=== PATIENT | male | born 1960 | race Caucasian/White ===

== ENCOUNTER 2016-12-25 04:03 | Emergency (ER) | payer OTHER, MEDICAID ==
[~2016-12-25] VITALS: Ht 174 cm; Wt 94.4 kg
[~2016-12-25 04:03] MED LIST: ALBU17AE20 IH; MOME17SP7 NS; MONT5TAB10 PO; MULT1CAP47 PO; NEBI5TAB2 PO; TRAM-277 PO; TRIAMTERINE PO; [UNRECOGNIZED DRUG - CODE] IH; [UNRECOGNIZED DRUG - CODE] PO
[2016-12-25 04:07] VITALS: Ht 174 cm; Wt 94.4 kg
--- OUTSIDE RECORDS SUMMARY | 2016-12-25 04:08 | XMS REPORT | Continuity of Care Document ---
Author Author [facility] [employer]. Organization [facility] Address Unknown Phone Unavailable Allergies Medications Problems Date Dx Coded Attending Type Code Diagnosis Diagnosed By 08/31/2013 TIERNEY WOODWARD MD 250.00 DM2/NOS UNCOMP NSU 08/31/2013 TIERNEY WOODWARD MD V70.0 ROUTINE MEDICAL EXAM 07/15/2014 TIERNEY WOODWARD MD 401.9 HYPERTENSION NOS 10/12/2014 LEONEL GIBSON MD 724.2 LUMBAGO 07/21/2015 TIERNEY WOODWARD MD E11.9 Type 2 diabetes mellitus without complications 03/19/2016 TIERNEY WOODWARD MD I10 Essential (primary) hypertension Procedures Code [place] [address] METABOLIC PANEL TOTAL CA TIERNEY WOODWARD MD 08/31/2013 37622 METABOLIC PANEL TOTAL CA TIERNEY WOODWARD MD 07/15/2014 14721 PT EVALUATION LEONEL GIBSON MD 09/20/2014 75941 ELECTRICAL STIMULATION LEONEL GIBSON MD 09/20/2014 20009 ULTRASOUND LEONEL BARTON MD 09/20/2014 00665 ELECTRICAL LEONEL JORDAN MD 09/23/2014 41080 ULTRASOUND THERAPY LEONEL GIBSON MD 09/23/2014 34487 MANUAL LEONEL BARTON MD 09/23/2014 52032 ELECTRICAL LEONEL JORDAN MD 09/25/2014 46068 ULTRASOUND LEONEL BARTON MD 09/25/2014 17485 MANUAL LEONEL BARTON MD 09/25/2014 46920 ELECTRICAL LEONEL JORDAN MD 09/30/2014 45712 ULTRASOUND LEONEL BARTON MD 09/30/2014 01201 MANUAL LEONEL BARTON MD 09/30/2014 79782 ELECTRICAL STIMULATION ARTHUR ANGEL, LEONEL Justice 10/04/2014 17512 ULTRASOUND THERAPY ARTHUR ANGEL, LEONEL Justice 10/04/2014 28011 MANUAL THERAPY ARTHUR ANGEL, LEONEL Justice 10/04/2014 80572 METABOLIC PANEL TOTAL CA TIERNEY WOODWARD MD 07/21/2015 55584 METABOLIC PANEL TOTAL CA TIERNEY WOODWARD MD 03/19/2016 Results Test Result Range Basic Metabolic Panel - 08/31/13 08:25 Sodium 139 MMOLL 134-145 Potassium 4.2 MMOLL 3.6-5.0 Chloride 103 MMOLL 98-107 CO2 26 MMOLL 22-30 Glucose 116 MG/DL 75-110 BUN 19 MG/DL 9-20 Creatinine .9 MG/DL 0.8-1.7 Calcium 9.6 MG/DL 8.4-10.2 Basic Metabolic Panel - 07/15/14 08:45 Sodium 142 MMOLL 134-145 Potassium 4.3 MMOLL 3.6-5.0 Chloride 102 MMOLL 98-107 CO2 27 MMOLL 22-30 Glucose 109 MG/DL 75-110 BUN 21 MG/DL 9-20 Creatinine .9 MG/DL 0.8-1.7 Calcium 9.4 MG/DL 8.4-10.2 Basic Metabolic Panel - 07/21/15 13:48 Sodium 137 MMOLL 134-145 Potassium 4.5 MMOLL 3.6-5.0 Chloride 98 MMOLL 98-107 CO2 32 MMOLL 22-30 Glucose 122 MG/DL 75-110 BUN 20 MG/DL 9-20 Creatinine 1.0 MG/DL 0.8-1.7 Calcium 9.4 MG/DL 8.4-10.2 Basic Metabolic Panel - 03/19/16 14:32 Sodium 145 MMOLL 134-145 Potassium 4.3 MMOLL 3.6-5.0 Chloride 99 MMOLL 98-107 CO2 30 MMOLL 22-30 Glucose 172 MG/DL 75-110 BUN 21 MG/DL 9-20 Creatinine .84 MG/DL 0.8-1.7 Calcium 9.3 MG/DL 8.4-10.2 EGFR 95 MLMIN Encounters ACCT No. Visit Date/Time Discharge Status Pt. Type Provider Facility Loc./Unit Complaint [id number] 03/19/2016 14:02:00 03/19/2016 14:02:00 DIS Outpatient MEHUL RUFF MD, [facility] [id number] 07/21/2015 13:13:00 07/21/2015 13:13:00 DIS Outpatient MEHUL RUFF MD, [facility] [id number] 10/13/2014 00:01:00 2014 23:59:59 CLS Outpatient LEONEL GIBSON MD [id number] 09/20/2014 10:22:00 2014 23:59:00 DIS Outpatient LEONEL GIBSON MD [id number] 07/15/2014 13:35:00 07/15/2014 13:35:00 DIS Outpatient MEHUL RUFF MD, [facility] [id number] 08/31/2013 11:50:00 08/31/2013 11:50:00 [facility]
--- OUTSIDE RECORDS SUMMARY | 2016-12-25 04:08 | XMS REPORT ---
Author Author [facility]. Organization [facility] Address [address] [place] [address] Phone [phone] Summary purpose CCDA Sent to [facility] Chief Complaint and Reason for Visit No authorized Reason for Visit (Admitting Diagnosis) is available for this visit. Problem list No authorized problems tracked for continuity of care are available for this visit. Encounters No authorized problems tracked for encounter diagnoses are available for this visit. Medications No home medications recorded for this patient visit Allergies, adverse reactions, alerts No allergy information is available for this patient. Immunizations No immunizations recorded for this patient visit Relevant diagnostic tests and/or laboratory data No authorized results are available for this patient visit History of procedures No procedures recorded for this patient visit. Functional status No functional or cognitive status observations are available for this visit. Vital signs No authorized vital signs are available for this visit. Social history No Social History or smoking status observations were recorded for this visit. ( Unknown if ever smoked.) Treatment Plan No treatment plan text is available for this visit. Hospital discharge instructions No discharge instruction text is available for this visit.
--- OUTSIDE RECORDS SUMMARY | 2016-12-25 04:08 | XMS REPORT ---
Author Author [facility]. Organization [facility] Address [address] [place] [address] Phone [phone] Summary purpose CCDA Sent to [facility] Chief Complaint and Reason for Visit No [...]
--- OUTSIDE RECORDS SUMMARY | 2016-12-25 04:08 | XMS REPORT ---
Author Author [facility]. Organization [facility] Address [address] [facility] [address] [place] [address] Phone [phone] Summary purpose CCDA Sent to [facility] Chief Complaint and Reason for Visit Admit Diagnosis 1 LUMBAGO Problem list No authorized problems tracked for [...] for this patient visit History of procedures Procedure Code Code Type Description Date Performed Performing Physician 69680 CPT-4 PT EVALUATION 09-20-2014 LEONEL GIBSON 48044 CPT-4 ELECTRICAL STIMULATION 09-20-2014 LEONEL GIBSON 79790 CPT-4 ULTRASOUND THERAPY 09-20-2014 LEONEL GIBSON 18210 CPT-4 ELECTRICAL STIMULATION 09-23-2014 LEONEL GIBSON 79251 CPT-4 ELECTRICAL STIMULATION 09-25-2014 LEONEL GIBSON 29978 CPT-4 ULTRASOUND THERAPY 09-23-2014 LEONEL GIBSON 41201 CPT-4 ULTRASOUND THERAPY 09-25-2014 LEONEL GIBSON 18510 CPT-4 MANUAL THERAPY 09-23-2014 LEONEL GIBSON 32631 CPT-4 MANUAL THERAPY 09-25-2014 LEONEL GIBSON 64362 CPT-4 ELECTRICAL STIMULATION 09-30-2014 LEONEL GIBSON 77682 CPT-4 ELECTRICAL STIMULATION 10-04-2014 LEONEL GIBSON 24683 CPT-4 ULTRASOUND THERAPY 09-30-2014 LEONEL GIBSON 77902 CPT-4 ULTRASOUND THERAPY 10-04-2014 LEONEL GIBSON 39392 CPT-4 MANUAL THERAPY 09-30-2014 LEONEL GIBSON 24675 CPT-4 MANUAL THERAPY 10-04-2014 LEONEL GIBSON Functional status No functional or cognitive status [...]
--- OUTSIDE RECORDS SUMMARY | 2016-12-25 04:08 | XMS REPORT ---
Author Author [facility]. Organization [facility] Address [address] [place] [address] Phone [phone] Summary purpose CCDA Sent to [facility] Chief Complaint and Reason for Visit No [...]
--- OUTSIDE RECORDS SUMMARY | 2016-12-25 04:08 | XMS REPORT ---
Author Author [facility]. Organization [facility] Address [address] [address] [address] [place] [address] Phone [phone] Summary purpose CCDA Sent to [facility] Chief Complaint and Reason for Visit No authorized Reason for Visit (Admitting Diagnosis) is available for this visit. Problem list No authorized problems tracked for continuity of care are available for this visit. Encounters No authorized problems tracked for encounter diagnoses are available for this visit. Medications No medications recorded for this patient visit Allergies, adverse reactions, alerts No allergy information is available for this patient. Immunizations No immunizations recorded for this patient visit Relevant diagnostic tests and/or laboratory data RESULTS Chemistry Group [id number] Result Normal Range Units Sodium 145 134-145 mmol/L Potassium 4.3 3.6-5.0 mmol/L Chloride 99 98-107 mmol/L CO2 30 22-30 mmol/L Glucose H 172 75-110 mg/dl BUN H 21 9-20 mg/dl Creatinine .84 0.8-1.7 mg/dl eGFR 95 ml/min. Calcium 9.3 8.4-10.2 mg/dl History of procedures No procedures recorded for [...]
--- OUTSIDE RECORDS SUMMARY | 2016-12-25 04:08 | XMS REPORT ---
Author Author [facility]. Organization [facility] Address [address] [place] [address] Phone [phone] Summary purpose CCDA Sent to [facility] Chief Complaint and Reason for Visit Admit Diagnosis 1 HYPERTENSION NOS Problem list No authorized problems tracked for [...] tests and/or laboratory data RESULTS Chemistry Group [id number] Result Normal Range Units Sodium 142 134-145 mmol/L Potassium 4.3 3.6-5.0 mmol/L Chloride 102 98-107 mmol/L CO2 27 22-30 mmol/L Glucose 109 75-110 mg/dl BUN H 21 9-20 mg/dl Creatinine .9 0.8-1.7 mg/dl Calcium 9.4 8.4-10.2 mg/dl History of procedures Procedure Code Code Type Description Date Performed Performing Physician 61334 CPT-4 METABOLIC PANEL TOTAL CA 07-15-2014 TIERNEY RUFF Functional status No functional or cognitive status [...]
--- OUTSIDE RECORDS SUMMARY | 2016-12-25 04:08 | XMS REPORT ---
Author Author [facility]. Organization [facility] Address [address] [facility] [place] [address] Phone [phone] Summary purpose CCDA Sent to [facility] Chief Complaint and Reason for Visit [...] tests and/or laboratory data RESULTS Chemistry Group [id number] Sodium 137 Potassium 4.5 Chloride 98 CO2 H 32 Glucose H 122 BUN 20 Creatinine 1.0 Calcium 9.4 History of procedures Procedure Code Code Type Description Date Performed Performing Physician 41366 CPT-4 METABOLIC PANEL TOTAL CA 07-21-2015 TIERNEY RUFF Functional status No functional or [...]
--- OUTSIDE RECORDS SUMMARY | 2016-12-25 04:08 | XMS REPORT ---
Author Author [facility]. Organization [facility] Address [address] [address] [place] [address] Phone [phone] Summary purpose CCDA Sent to [facility] Chief Complaint and Reason for Visit No [...] tests and/or laboratory data RESULTS Chemistry Group [id number] Result Normal Range Units Sodium 142 134-145 mmol/L Potassium 4.3 3.6-5.0 mmol/L Chloride 102 98-107 mmol/L CO2 27 22-30 mmol/L Glucose 109 75-110 mg/dl BUN H 21 9-20 mg/dl Creatinine .9 0.8-1.7 mg/dl Calcium 9.4 8.4-10.2 mg/dl History of procedures No procedures [...]
--- NOTE | 2016-12-25 04:10 | NUR ---
TRIAGE NOTE PT IS VERY SOCIAL AND TALKATIVE IN TRIAGE GIVING LONG HX OF STOMACH PROBLEMS WITH CERTAIN FOODS
[2016-12-25] MEDS ORDERED: NORMAL SALINE 1,000 ML IV ONE (04:30)
[2016-12-25] MEDS ORDERED: KETOROLAC 30mg/ml INJECTION IV ONE (04:30)
[2016-12-25] MEDS ORDERED: PROCHLORPERAZINE 10mg/2ml INJECTION IV ONE (04:30)
--- NOTE | 2016-12-25 04:34 | ERPDOC ---
Departure Disposition Decision Date: Dec 25, 2016 Disposition Decision Time: 09:41 (JUAN DONNELLY MD) Disposition: 01 DISCHARGED HOME, SELF-CARE Impression Impression (ROYA ERNANDEZ MD) Impression: Primary Impression: Right upper quadrant abdominal pain Additional Impression: Fatty food intolerance Severity: Moderate (JUAN DONNELLY MD) Condition: Improved Seen By: Physician only (JUAN DONNELLY MD) Referrals: TIERNEY CONKLIN (Family) Patient Instructions: Abdominal Pain (ED) Problems/Meds/Labs Reviewed?: Yes Medications reviewed and manag: Yes (JUAN DONNELLY MD) Additional Instructions: Flagyl 500 mg, one tablet 3 times daily Levaquin 750 mg, 1 tab daily. Zofran 4 mg every 6 hours as needed for nausea. Low-fat diet--That means no fried fish and hush puppies :) Follow-up with your primary care provider, set up HIDA scan. Follow up care ordered?: Yes Mental Status: Alert, Oriented (JUAN DONNELLY MD) Scripts Ondansetron HCl (Ondansetron HCl) 4 Mg Tablet 1 TAB PO Q6HPRN Y for NAUSEA, #30 TAB 1 Refill Prov: JUAN DONNELLY MD 12/25/16 Metronidazole (Flagyl) 500 Mg Tablet 11 TAB PO TID, #30 TAB Prov: JUAN DONNELLY MD 12/25/16 Levofloxacin (Levaquin) 750 Mg Tablet 1 TAB PO DAILY, #10 TAB Prov: JUAN DONNELLY MD 12/25/16 HPI - Abdominal Pain General Chief Complaint: Abdominal Pain Stated Complaint: ABD PAIN Time Seen by Provider: 04:06 Source: patient, family History/Exam Limitations: no limitations (ROYA ERNANDEZ MD) Time Seen by Provider: 06:19 (JUAN DONNELLY MD) HPI - Abdominal Pain Initial Comments Patient has had multiple episodes of the past several months of epigastric and right upper quadrant abdominal pain with bloating after eating fatty fried foods or baked ham. Approximately 36 hours ago the patient had urge meal of fried catfish with hush puppies. 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 Patient went to the emergency room at [facility], had "normal blood work," and was given a GI cocktail to relief of his symptoms at that time. At 12:30 this morning the patient again had the recurrence of severe right sided crampy abdominal pain with generalized bloating and full feeling throughout the abdomen. Patient also had dizziness, and one episode of vomiting bile. Patient has not had evaluation of his gallbladder in the past, but has had his appendix removed. Occurred At: home Onset: Rapid Duration: 4-6 hrs Quality: cramping, sharpness Location: RUQ, right flank Radiation: no radiation Associated Symptoms: fever/chills (temperature up to 1.2 yesterday at home), nausea/vomiting, DENIES: back pain, chest pain, diaphoresis, fatigue, headache, heartburn, rash, shortness of breath, swelling/mass in abdomen, syncope, weakness Hx of Similar Symptoms: Yes (ROYA ERNANDEZ MD) Allergies: Coded Allergies: Penicillins (Verified Allergy, Intermediate, HIVES, 12/25/16) codeine (Verified Allergy, Mild, NAUSEA, 12/25/16) Past History Past Medical History Metabolic: diabetes, hypertension Respiratory: asthma Musculoskeletal: back pain (ROYA ERNANDEZ MD) Surgical History General: appendix (ROYA ERNANDEZ MD) Vaccines Hx Influenza Vaccination: Yes (fall) Hx Pneumococcal Vaccination: Yes (2005) (ROYA ERNANDEZ MD) Social History Smoking Status: Never smoker Does patient use chewing tobac: No Second Hand Exposure: No Substance Use Type: does not use Alcohol Intake: none (ROYA ERNANDEZ MD) Record Review Pertinent history updated: Yes (ROYA ERNANDEZ MD) Review of Systems Constitutional Constitutional: DENIES: appetite decrease, appetite increase, chills, dizziness , fever, weakness (ROYA ERNANDEZ MD) ENMT Ears: DENIES: pain Hearing: DENIES: hearing loss, tinnitus Balance: DENIES: vertigo Mouth/Throat: DENIES: change in swallowing, change in voice, hoarsness, painful swallowing, sore throat (ROYA ERNANDEZ MD) Cardiovascular Cardiac: DENIES: chest pain, dyspnea on exertion Rhythm/Rate: DENIES: irregular beat, palpitations, tachycardia Vascular: DENIES: pedal edema (ROYA ERNANDEZ MD) Pulmonary Respiratory: DENIES: cough, dyspnea, pleuritic chest pain (ROYA ERNANDEZ MD) GI Upper Abdomen: nausea, pain, vomiting, DENIES: dysphagia, food intolerances, heartburn/indigestion, hematemesis Lower Abdomen: pain, DENIES: blood in stool, rimma-colored stools, constipation , diarrhea, melena, painful BM (ROYA ERNANDEZ MD) General: DENIES: burning, dysuria, frequency, pain, urgency (ROYA ERNANDEZ MD) Musculoskeletal General: DENIES: cramps, joint pain, joint swelling, pain, weakness (ROYA ERNANDEZ MD) Integumentary Skin: DENIES: rash, sores (ROYA ERNANDEZ MD) Neurological General: DENIES: headache, numbness, tingling, vertigo, weakness (ROYA ERNANDEZ MD) Psychiatric Psychiatric: DENIES: anxiety, depression, nervousness (ROYA ERNANDEZ MD) Physical Exam General General Nourishment: well nourished, well developed, appears stated age, no acute distress General Body Habitus: well groomed (ROYA ERNANDEZ MD) Vitals and Pain First Documented Vital Signs Date Time Temp Pulse Resp B/P Pulse Ox O2 Delivery O2 Flow Rate FiO2 12/25/16 04:07 98.0 68 20 141/69 93 Room Air (JUAN DONNELLY MD) Vitals and Pain Weight: Kilograms: Height (feet): Height (inches): Triage Pain Scale: (ROYA ERNANDEZ MD) RN VS reviewed by Provider: Yes (ROYA ERNANDEZ MD) Normal Exams: Head: Normocephalic w/o trauma Eyes: Pupils are PERRLA w/ EOMI, No scleral icterus, irritation, or foreign bodies noted ENMT: No facial trauma, nasal exudates, pharyngeal erythema, or exudates are noted Neck: Full range of motion, without adenopathy, JVD, bruits or thyromegaly Chest/Resp: Clear all brown, with good airflow, and symmetry bilaterally CV: Regular rate and rhythm, without murmur or gallop, Pulses 2+ all extremities, capillary refill, <2 seconds all ext., no pedal edema noted Lymphatic: No lymphadenopathy, or lymphedema noted Musculoskeletal: No tenderness, or deformity noted, good range of motion, all extremities Integumentary: No rashes, hives, or bruising noted, hair and nails, without abnormality Neurologic: Patient is alert, and oriented, cranial nerves, motor/sensory/ cerebellar, exams w/o gross deficits, to observation Psychiatric: Patient exhibits, appropriate attention, emotion and affect (ROYA ERNANDEZ MD) Abdomen (brief) Abdominal Brief: FOUND: soft, tender (epigastric and right upper quadrant tenderness, mild guarding, no rebound), NOT FOUND: bowel normo active x4 ( mildly diminished throughout), distended, hepatosplenomegaly, pulsatile mass ( ROYA ERNANDEZ MD) Progress Results/Orders Orders Procedure Category Date Status Time Iv Lock (Ed Only) EDM 12/25/16 Transmitted 04:30 Cbc W/Auto LAB 12/25/16 Complete Diff-Reflex Manual Cmp - Comprehensive LAB 12/25/16 Complete Metabolic Lipase LAB 12/25/16 Complete Normal Saline (Normal PHA 12/25/16 Complete Saline Iv) 04:30 Ketorolac (Toradol) PHA 12/25/16 Complete 04:30 Prochlorperazine PHA 12/25/16 Complete (Compazine) 04:30 Us Gallbladder US 12/25/16 Logged (JUAN DONNELLY MD) Lab Results Laboratory Tests Test 12/25/16 05:04 White Blood Count 17.0T/MM3 Red Blood Count 4.94M/MM3 Hemoglobin 15.0GM/DL Hematocrit 43.6% Mean Corpuscular Volume 88.3UM3 Mean Corpuscular Hemoglobin 30.4UUG Mean Corpuscular Hemoglobin Concent 34.4GM/DL RDW Standard Deviation 39.7FL Platelet Count 166T/MM3 Mean Platelet Volume 11.1UM3 Immature Granulocyte % (Auto) % Neutrophils (%) (Auto) % Lymphocytes (%) (Auto) % Monocytes (%) (Auto) % Eosinophils (%) (Auto) % Basophils (%) (Auto) % Absolute Immature Granulocyte (auto T/MM3 Absolute Neutrophils (auto) T/MM3 Absolute Lymphocytes (auto) T/MM3 Absolute Monocytes (auto) T/MM3 Absolute Eosinophils (auto) T/MM3 Absolute Basophils (auto) T/MM3 Neutrophils % (Manual) 92.0% Band Neutrophils % 1.0% Lymphocytes % (Manual) 7.0% Absolute Neutrophils (Manual) 15.6T/MM3 Band Neutrophils # 0.2T/MM3 Lymphocytes # (Manual) 1.2T/MM3 Red Cell Morphology Comment Normal Turbidity < 20 Sodium Level 139MEQ/L Potassium Level 4.0MEQ/L Chloride Level 99MEQ/L Carbon Dioxide Level 25MEQ/L Anion Gap 15MEQ/L Blood Urea Nitrogen 21.0MG/DL Creatinine 0.9MG/DL Glomerular Filtration Rate Calc 87 BUN/Creatinine Ratio 23RATIO Glucose Level 188MG/DL Calculated Osmolality 276MOSM/KG Calcium Level 9.1MG/DL Total Bilirubin 1.20MG/DL Icterus Index < 2 Aspartate Amino Transf (AST/SGOT) 24U/L Alanine Aminotransferase (ALT/SGPT) 34U/L Alkaline Phosphatase 59U/L Total Protein 7.0G/DL Albumin 4.2G/DL Globulin 2.8G/DL Albumin/Globulin Ratio 1.5RATIO Lipase 33U/L Chemistry Specimen Hemolysis < 15 (JUAN DONNELLY MD) Medications Current ED Medications Sodium Chloride (Normal Saline IV) 1,000 ml @ 0 mls/hr Q0M ONCE IV Last administered on 12/25/16 05:00; Start 12/25/16 at 04:30; Stop 12/25/16 at 04:32 ; Status DC Ketorolac Tromethamine (Toradol) 30 mg O ONCE IV Last administered on 05:06; Start 12/25/16 at 04:30; Stop 12/25/16 at 04:32; Status DC Prochlorperazine Edisylate (Compazine) 10 mg O ONCE IV Last administered on 05:01; Start 12/25/16 at 04:30; Stop 12/25/16 at 04:32; Status DC (JUAN DONNELLY MD) Progress Progress Patient given Toradol 30 mg IV, Compazine 10 mg IV, 1 L normal saline IV fluid bolus - patient has some relief, but persistent right upper quadrant abdominal pain with positive Hooks sign CBC - moderate elevated white blood cell count, minimal left shift CMP/L - n Gallbladder ultrasound is ordered at 0540 (ROYA ERNANDEZ MD) Progress Labs are normal except for elevated white count. Left shift is noted. Ultrasound of abdomen shows no gallstones, but does document tenderness during the exam. Discussed options with the patient. Certainly he needs an evaluation for probable laparoscopic cholecystectomy by a surgeon. Because of the elevated white count would treat him with Flagyl and Levaquin for 7-10 days, while he sets up follow up with primary care provider and referral to general surgery. Discussed the possible need for HIDA scan. He'll review this with his primary care provider. Also discussed diet management. Discussed that fried fish and hush puppies does not count as low fat. I do think patient is committed to changing diet, which certainly will help. Juan Donnelly M.D. (JUAN DONNELLY MD) ROYA ERNANDEZ MD Dec 25, 2016 04:34 JUAN DONNELLY MD Dec 25, 2016 09:42
--- NOTE | 2016-12-25 04:55 | NUR ---
IVL IVL STARTED IN THE LEFT AC WITH #20GA, FIRST ATTEMPT BLOOD OBTAINED FOR LAB PT STAN WELL PT HAS BRUISING TO THE RIGHT HAND AND THE RIGHT AC FROM LAB DRAWS IN [place] [facility] ON TUESDAY. PT REPORTS HE BRUISES EASILY
--- NOTE | 2016-12-25 05:00 | NUR ---
IV FLUID #1 IV 1000CC NS STARTED AT 999CC/HR IV SITE WITHOUT REDNESS OR SWELLING PT TALKATIVE WITH STAFF AT BEDSIDE
--- NOTE | 2016-12-25 05:01 | NUR ---
COMPAZINE IV COMPAZINE GIVEN FOR NAUSEA AND CRAMPING
--- NOTE | 2016-12-25 05:06 | NUR ---
TORADOL IV TORADOL GIVEN FOR PAIN PT RATES HIS PAIN 8/
[2016-12-25 05:10] LABS: HCT - HEMATOCRIT 43.6 % (41-53); MEAN CORPUSCULAR HGB 30.4 UUG (26-34); MEAN CORPUSCULAR HGB CONC(MCHC 34.4 GM/DL (31-37); MEAN CORPUSCULAR VOLUME 88.3 UM3 (80-100); MEAN PLATELET VOLUME 11.1 UM3 (9.4-12.4); RED BLOOD COUNT 4.94 M/MM3 (4.50-5.90)
--- NOTE | 2016-12-25 05:15 | NUR ---
REST PT DOZING QUIETLY ON CART DECLINED OFFERED BLANKET LIGHTS DIMMED
[2016-12-25 05:19] LABS: ALBUMIN 4.2 G/DL (3.5-5.0); ALBUMIN/GLOBULIN RATIO 1.5 RATIO (1.1-2.2); ALKALINE PHOSPHATASE 59 U/L (38-126); ALT (SGPT) 34 U/L (21-72); ANION GAP 15 MEQ/L (5-15); AST (SGOT) 24 U/L (17-59); BUN/CREATININE RATIO 23 RATIO (6-26); CALCIUM 9.1 MG/DL (8.4-10.2); CHLORIDE 99 MEQ/L (98-107); CO2 - CARBON DIOXIDE 25 MEQ/L (22-30); CREATININE 0.9 MG/DL (0.8-1.5); GLOMERULAR FILTRATION RATE 87; GLUCOSE 188 MG/DL (75-110); LIPASE 33 U/L (23-300); SODIUM 139 MEQ/L (134-144)
[2016-12-25 05:26] LABS: BAND NEUTROPHILS # 0.2 T/MM3; LYMPHOCYTES # (MANUAL) 1.2 T/MM3 (1-4.8); NEUTROPHILS #(MANUAL)-ABSOLUTE 15.6 T/MM3 (1.8-7.7); TOTAL CELLS COUNTED 100 %
[2016-12-25] MEDS ORDERED: NORCO (05:26)
[2016-12-25] MEDS ORDERED: METF500T4 PO (05:26)
--- NOTE | 2016-12-25 05:41 | NUR ---
STATUS PT AROUSES EASILY TO STIMULI STATES HE WAS SLEEPING CONTINUES TO FEEL THE PAIN TO THE RUQ DR ERNANDEZ AT BEDSIDE
--- NOTE | 2016-12-25 05:48 | NUR ---
SONO CALL TO THE ON-CALL SONO TECH FOR ORDERED GALLBLADDER SONO
--- NOTE | 2016-12-25 06:06 | NUR ---
IV FLUID #1 IV NS INFUSED IV SITE WITHOUT REDNESS OR SWELLING PT REPORTS HE SLEPT SOME REPORTS THE PAIN IS STILL THERE LIKE A DEEP ACHE TELLS STAFF HE CAN TAKE A DEEP BREATH NOW WITHOUT SEVERE PAIN RATES PAIN 03/21 DENIES NAUSEA, NO VOMITING REMAINS AT BEDSIDE
--- OUTSIDE RECORDS SUMMARY | 2016-12-25 07:09 | XMS REPORT | Continuity of Care Document ---
Author Author [facility] [employer]. Organization [facility] Address Unknown Phone Unavailable Allergies Medications Problems [...] Procedures Code [place] [id number] METABOLIC PANEL TOTAL CA TIERNEY WOODWARD MD 08/31/2013 [id number] METABOLIC PANEL TOTAL CA TIERNEY WOODWARD MD 07/15/2014 85099 PT EVALUATION LEONEL GIBSON MD 09/20/2014 20537 ELECTRICAL STIMULATION LEONEL GIBSON MD 09/20/2014 43883 ULTRASOUND LEONEL BARTON MD 09/20/2014 03086 ELECTRICAL LEONEL JORDAN MD 09/23/2014 22199 ULTRASOUND THERAPY LEONEL GIBSON MD 09/23/2014 57336 MANUAL LEONEL BARTON MD 09/23/2014 66385 ELECTRICAL LEONEL JORDAN MD 09/25/2014 41359 ULTRASOUND LEONEL BARTON MD 09/25/2014 29121 MANUAL LEONEL BARTON MD 09/25/2014 82449 ELECTRICAL LEONEL JORDAN MD 09/30/2014 38745 ULTRASOUND LEONEL BARTON MD 09/30/2014 81481 MANUAL LEONEL BARTON MD 09/30/2014 25432 ELECTRICAL STIMULATION ARTHUR ANGEL, LEONEL Justice 10/04/2014 75947 ULTRASOUND THERAPY ARTHUR ANGEL, LEONEL Justice 10/04/2014 68422 MANUAL THERAPY ARTHUR ANGEL, LEONEL Justice 10/04/2014 15265 METABOLIC PANEL TOTAL CA TIERNEY WOODWARD MD 07/21/2015 10674 METABOLIC PANEL TOTAL CA TIERNEY WOODWARD MD [...] Status Pt. Type Provider Facility Loc./Unit Complaint [id number] 03/19/2016 14:02:00 03/19/2016 14:02:00 DIS Outpatient MEHUL RUFF MD, [facility] [id number] 07/21/2015 13:13:00 07/21/2015 13:13:00 DIS Outpatient MEHUL RUFF MD, [facility] [id number] 10/13/2014 00:01:00 2014 23:59:59 CLS Outpatient LEONEL GIBSON MD [id number] 09/20/2014 10:22:00 2014 23:59:00 DIS Outpatient LEONEL GIBSON MD [id number] 07/15/2014 13:35:00 07/15/2014 13:35:00 DIS Outpatient MEHUL RUFF MD, [facility] [id number] 08/31/2013 11:50:00 08/31/2013 11:50:00 [facility]
--- NOTE | 2016-12-25 07:21 | NUR ---
US US completed at this time, awaiting results for pt plan of care determination.
--- NOTE | 2016-12-25 09:24 | NUR ---
UPDATE DR. DONNELLY IN TO SEE THE PT.
[2016-12-25] MEDS ORDERED: METO50TA5 PO (09:40)
[2016-12-25] MEDS ORDERED: ALBU18HF2 INH (09:40)
[2016-12-25] MEDS ORDERED: RAMI10CA24 PO (09:42)
[2016-12-25] MEDS ORDERED: AMLO5TAB2 PO (09:42)
[2016-12-25] MEDS ORDERED: FLUT16SP EA NOSTRIL (09:42)
[2016-12-25] MEDS ORDERED: HYDR-3989 PO (09:44)
[2016-12-25] MEDS ORDERED: CYCL5TAB PO (09:44)
[2016-12-25] MEDS ORDERED: FLUO40CA49 PO (09:44)
[2016-12-25] MEDS ORDERED: BECL8.7A6 INH (09:44)
[2016-12-25] MEDS ORDERED: OMEP20CA10 PO (09:44)
[2016-12-25] MEDS ORDERED: IBUP-1724 PO (09:45)
[2016-12-25] MEDS ORDERED: CHOL200014 PO (09:45)
[2016-12-25] MEDS ORDERED: METR500T PO (09:49)
[2016-12-25] MEDS ORDERED: LEVO750T20 PO (09:49)
[2016-12-25] MEDS ORDERED: ONDA-55 PO (09:49)
[2016-12-25 10:00] VITALS: BP 133/67; PULSE 78; RESP 17; TEMP 98; O2SAT 98
--- NOTE | 2016-12-26 17:15 | DI ---
Indication: ITS.REASON: right upper quadrant abdominal pain, positive Hooks sign PROCEDURE: US GALLBLADDER: Encounter: Initial Comparison: None Technique: Grayscale and color Doppler sonographic imaging of the right upper quadrant of the abdomen was performed. Findings: Hepatic parenchyma is echogenic without evidence for focal mass. The gallbladder appears sonographically normal although the sonographic Hooks's sign was reportedly positive. No stone disease. Wall thickness is at the upper limits of normal at 3 mm. Both the intra and extrahepatic biliary system are of normal caliber with the common duct measuring 4 mm in dimension. Pancreas is not well seen due to shadowing bowel gas. The right kidney is present without collecting system dilatation. The right kidney measures 10.3 cm in length. Simple 3 cm right renal cyst and additional 1.8 cm right renal cyst. Impression: 1. Positive sonographic Hooks sign of uncertain clinical significance. Nuclear medicine hepatobiliary scan may be helpful for further evaluation. 2. Probable hepatic steatosis. There is a preliminary report by [facility]. .
== END 2016-12-25 10:00 | disposition home or self-care (01) ==
LOC: ED 04:03
DX: R10.11 Right upper quadrant pain (principal); R14.0 Abdominal distension (gaseous); R42 Dizziness and giddiness; R11.10 Vomiting, unspecified; K90.49 Malabsorption due to intolerance, not elsewhere classified
CPT/HCPCS: 76705; 80053; 83690; 85025; 96361; 96374; 96375; 99284; J0780; J1885; J7030

== ENCOUNTER 2017-01-17 10:23 | Day surgery (SDC) | payer OTHER, MEDICAID ==
[~2017-01-17] VITALS: Ht 172.7 cm; Wt 90.5 kg
[2017-01-17] VITALS (31 sets, daily range): BP systolic 118–155; BP diastolic 62–98; PULSE 66–100; RESP 12–19; TEMP 96–98.1; O2SAT 90–99; Ht 172.7 cm; Wt 90.5 kg
[~2017-01-17 10:23] MED LIST changes: -ALBU17AE20 IH; +ALBU18HF2 INH; +AMLO5TAB2 PO; +BECL8.7A6 INH; +CHOL200014 PO; +CYCL5TAB PO; +FEXO180T94 PO; +FLUO40CA49 PO; +FLUT16SP EA NOSTRIL; +HYDR-3989 PO; +IBUP-1724 PO; +LEVOFLOXACIN 500 mg IVPB 500 MG in D5W 100 ML IV ONE; +LIDOCAINE 1% (10mg/ml) 2ml SDV INJ ONE; +LR 1,000 ML IV SCH; +METF500T4 PO; +METO50TA5 PO; -MOME17SP7 NS; -MONT5TAB10 PO; -NEBI5TAB2 PO; +OMEP20CA10 PO; +ONDA-55 PO; +RAMI10CA24 PO; -TRAM-277 PO; -TRIAMTERINE PO; -[UNRECOGNIZED DRUG - CODE] IH; -[UNRECOGNIZED DRUG - CODE] PO
--- OUTSIDE RECORDS SUMMARY | 2017-01-17 10:29 | XMS REPORT | Continuity of Care Document ---
Author Author [facility] [employer]. Organization [facility] Address Unknown Phone Unavailable Allergies Medications Problems [...] Procedures Code Description [place] [id number] METABOLIC PANEL TOTAL CA TIERNEY WOODWARD MD 08/31/2013 66864 METABOLIC PANEL TOTAL CA TIERNEY WOODWARD MD 07/15/2014 75958 PT EVALUATION LEONEL GIBSON MD 09/20/2014 11498 ELECTRICAL STIMULATION LEONEL GIBSON MD 09/20/2014 00207 ULTRASOUND LEONEL BARTON MD 09/20/2014 46574 ELECTRICAL LEONEL JORDAN MD 09/23/2014 06310 ULTRASOUND THERAPY LEONEL GIBSON MD 09/23/2014 14338 MANUAL LEONEL BARTON MD 09/23/2014 61860 ELECTRICAL LEONEL JORDAN MD 09/25/2014 47745 ULTRASOUND LEONEL BARTON MD 09/25/2014 49993 MANUAL LEONEL BARTON MD 09/25/2014 67727 ELECTRICAL LEONEL JORDAN MD 09/30/2014 92839 ULTRASOUND LEONEL BARTON MD 09/30/2014 31994 MANUAL LEONEL BARTON MD 09/30/2014 50270 ELECTRICAL STIMULATION ARTHUR ANGEL, LEONEL Justice 10/04/2014 97032 ULTRASOUND THERAPY ARTHUR ANGEL, LEONEL Justice 10/04/2014 58239 MANUAL THERAPY ARTHUR ANGEL, LEONEL Justice 10/04/2014 49500 METABOLIC PANEL TOTAL CA MEHUL RUFF MD, TIERNEY Koch 07/21/2015 [id number] METABOLIC PANEL TOTAL CA TIERNEY WOODWARD MD [...] Calcium 9.3 MG/DL 8.4-10.2 EGFR 95 MLMIN Comprehensive Metabolic Panel - 12/24/16 11:00 Sodium 139 MMOLL 134-145 Potassium 4.0 MMOLL 3.6-5.0 Chloride 100 MMOLL 98-107 CO2 22 MMOLL 22-30 Glucose 194 MG/DL 75-110 BUN 19 MG/DL 9-20 Creatinine .73 MG/DL 0.8-1.7 Calcium 9.1 MG/DL 8.4-10.2 T Bili .6 MG/DL 0.2-1.3 T. Protein 7.1 G/DL 6.3-8.2 A/G Ratio 1.4 RATIO Albumin 4.2 G/DL 3.5-5.0 Alk Phos 76 U/L 38-126 ALT 29 U/L 11-66 AST 34 U/L 14-36 EGFR 111 MLMIN CBC - 12/24/16 11:00 Eos # 0.02 x10^3 0-0.5 Eos % 0.2 % 0-4 HCT 43.9 % 42.0-52.0 HGB 14.9 G/DL 14.0-18.0 Lymph # 0.96 x10^3 1.0-4.0 Lymph % 9.1 % 20-50 MCH 30.3 PG 27.0-31.0 MCHC 33.9 G/DL 32.0-36.0 MCV 89.2 FL 80-94 Hur[place] # 0.66 x10^3 0.0-0.8 [place] % 6.2 % 1.0-9.0 MPV 11.0 FL 6.0-10.0 Platelet 173 x10^3 150-400 RBC 4.92 x10^3 4.60-6.20 RDW 12.4 % 12-15 WBC 10.60 x10^3 5.8-10.8 Baso # 0.02 x10^3 0-0.2 Baso % 0.2 % 0-2 Neut % 84.3 % 50-70 Neut # 8.94 x10^3 3.0-7.0 Lipase - 12/24/16 11:00 Lipase 73 MG/DL 23-300 Troponin I - 12/24/16 11:12 Troponin I < 0.06 NG/ML Comprehensive Metabolic Panel - 12/31/16 12:02 Sodium 138 MMOLL 134-145 Potassium 3.8 MMOLL 3.6-5.0 Chloride 98 MMOLL 98-107 CO2 26 MMOLL 22-30 Glucose 222 MG/DL 75-110 BUN 19 MG/DL 9-20 Creatinine .77 MG/DL 0.8-1.7 Calcium 9.3 MG/DL 8.4-10.2 T Bili .5 MG/DL 0.2-1.3 T. Protein 5.8 G/DL 6.3-8.2 A/G Ratio 1.1 RATIO Albumin 3.1 G/DL 3.5-5.0 Alk Phos 71 U/L 38-126 ALT 21 U/L 11-66 AST 18 U/L 14-36 EGFR 104 MLMIN CBC - 12/31/16 12:32 Eos # 0.03 x10^3 0-0.5 Eos % 0.4 % 0-4 HCT 41.2 % 42.0-52.0 HGB 13.8 G/DL 14.0-18.0 Lymph # 0.96 x10^3 1.0-4.0 Lymph % 11.7 % 20-50 MCH 30.3 PG 27.0-31.0 MCHC 33.5 G/DL 32.0-36.0 MCV 90.5 FL 80-94 [place] # 1.06 x10^3 0.0-0.8 [place] % 12.9 % 1.0-9.0 MPV 11.0 FL 6.0-10.0 Platelet 201 x10^3 150-400 RBC 4.55 x10^3 4.60-6.20 RDW 12.1 % 12-15 WBC 8.19 x10^3 5.8-10.8 Baso # 0.01 x10^3 0-0.2 Baso % 0.1 % 0-2 Neut % 74.9 % 50-70 Neut # 6.13 x10^3 3.0-7.0 Encounters ACCT No. Visit Date/Time Discharge Status Pt. Type Provider Facility Loc./Unit Complaint [id number] 03/19/2016 14:02:00 03/19/2016 14:02:00 DIS Outpatient MEHUL RUFF MD, [facility] ALAB [id number] 07/21/2015 13:13:00 07/21/2015 13:13:00 DIS Outpatient MEHUL RUFF MD, [facility] SONJA [id number] 10/13/2014 00:01:00 2014 23:59:59 CLS Outpatient LEONEL GIBSON MD [id number] 09/20/2014 10:22:00 2014 23:59:00 DIS Outpatient LEONEL GIBSON MD [id number] 07/15/2014 13:35:00 07/15/2014 13:35:00 DIS Outpatient MEHUL RUFF MD, [facility] [id number] 08/31/2013 11:50:00 08/31/2013 11:50:00 DIS Outpatient MEHUL RUFF MD, [facility] [id number] 12/31/2016 12:02:00 Document Registration [id number] 12/24/2016 11:00:00 Document Registration
--- OUTSIDE RECORDS SUMMARY | 2017-01-17 10:29 | XMS REPORT ---
Author Author [facility]. Organization [facility] Address [address] [place] [address] Phone [phone] Summary purpose CCDA Sent to [facility] Chief Complaint and Reason for Visit No authorized Reason for Visit (Admitting Diagnosis) is available for this visit. Problem list No authorized problems tracked for continuity of care are available for this visit. Encounters No authorized problems tracked for encounter diagnoses are available for this visit. Medications No medications recorded for this patient visit Allergies, adverse reactions, alerts Allergen Category Ingredient Status Reaction Severity Onset Penicillins Drug Penicillins Active codeine Drug codeine Active Immunizations No immunizations recorded for this patient visit Relevant diagnostic tests and/or laboratory data RESULTS CBC [id number]:30:00 Result Normal Range Units WBC 8.19 5.8-10.8 x103/mm3 Neutrophil % H 74.9 50-70 % Lymph % L 11.7 20-50 % Paul[place] % H 12.9 1.0-9.0 % Eosinophil % 0.4 0-4 % Basophil % 0.1 0-2 % Neutrophil # 6.13 3.0-7.0 x103/mm3 Lymph # L 0.96 1.0-4.0 x103/mm3 [place] # H 1.06 0.0-0.8 x103/mm3 Eosinophil # 0.03 0-0.5 x103/mm3 Basophil # 0.01 0-0.2 x103/mm3 RBC L 4.55 4.60-6.20 x103/mm3 HGB L 13.8 14.0-18.0 g/dl HCT L 41.2 42.0-52.0 % MCV 90.5 80-94 FL MCH 30.3 27.0-31.0 pg MCHC 33.5 32.0-36.0 g/dl RDW 12.1 12-15 % Platelet 201 150-400 x103/mm3 MPV H 11.0 6.0-10.0 FL Chemistry Group [id number]:30:00 Result Normal Range Units Sodium 138 134-145 mmol/L Potassium 3.8 3.6-5.0 mmol/L Chloride 98 98-107 mmol/L CO2 26 22-30 mmol/L Glucose H 222 75-110 mg/dl BUN 19 9-20 mg/dl Creatinine L .77 0.8-1.7 mg/dl eGFR 104 ml/min. Total Protein L 5.8 6.3-8.2 g/dl Albumin L 3.1 3.5-5.0 g/dl Calcium 9.3 8.4-10.2 mg/dl Alk Phos 71 38-126 U/L AST 18 14-36 U/L ALT 21 11-66 U/L T Bili .5 0.2-1.3 mg/dl A/G Ratio 1.1 Ratio History of procedures No procedures recorded for [...]
--- OUTSIDE RECORDS SUMMARY | 2017-01-17 10:29 | XMS REPORT | Continuity of Care Document ---
Author Author [facility] Organization [facility] Address Unknown Phone Unavailable Support Name Relationship Address Phone JUAN DONNELLY MD Caregiver [address] [place] [phone] Unavailable TIERNEY CONKLIN Caregiver [address] [place] [address] Unavailable MARY ESCALANTE Next Of Kin [address] [place] [phone] Insurance Providers Guarantor Jesus Escalante Address [address] [place] [address] Email [email or web address] [facility] Policy Number [id number] Subscriber's Name Jesus Escalante Relationship 18 Self Chief Complaint and Reason for Visit Chief Complaint Abdominal Pain Reason for Visit Right upper quadrant abdominal pain [id number] Problems Past Problems Medical Problem Onset Date Fatty food intolerance Unknown Right upper quadrant abdominal pain Unknown Medications Current Home Medications Medication Dose Units Route Directions Days Qty Instructions Start Date Acetaminophen/Hydrocodone Bitart ([place] 5-325 Tablet) 5-325 Tablet 1-2 Tab Oral Every 4-6 Hours as needed for Pain 12/25/16 Albuterol Sulfate (Ventolin Hfa 90 Mcg/Actuation) 18 Gm Hfa.aer.ad 1-2 Puff Inhalation Every 4 Hours as needed for Prn Orders 12/25/16 Amlodipine Besylate 5 Mg Tablet 5 Mg Oral Daily 12/25/16 Beclomethasone Dipropionate (Qvar 80) 8.7 Gm Aer.w.adap 2 Puff Inhalation Daily 12/25/16 Cholecalciferol (Vitamin D3) (Vitamin D3) 2,000 Unit Tablet 2,000 Unit Oral Daily 12/25/16 Cyclobenzaprine Hcl 5 Mg Tablet 2.5 Mg Oral Bedtime 12/25/16 Fluoxetine Hcl 40 Mg Capsule 40 Mg Oral Daily 12/25/16 Fluticasone Propionate (Fluticasone Prop 50 Mcg/Actuation Nasal Casar) 120 Casar/16 G Casar 1-2 Casar Each Nostril Daily 12/25/16 Ibuprofen 200 Mg Tablet 600 Mg Oral Every 6 Hours as needed for Pain 12/25/16 Levofloxacin (Levaquin) 750 Mg Tablet 1 Tab Oral Daily 10 Tablet Metformin Hcl 500 Mg Tablet 500 Mg Oral Twice Daily With Meals Metoprolol Tartrate 50 Mg Tablet 50 Mg Oral Twice A Day 12/25/16 Metronidazole (Flagyl) 500 Mg Tablet 11 Tab Oral Three Times A Day 30 Tablet 12/25/16 Multivitamins W-Minerals (Multivitamin) 1 Cap Capsule 1 Cap Oral Daily 06/10/09 Omeprazole 20 Mg Capsule.dr 20 Mg Oral Before Breakfast 12/25/16 Ondansetron Hcl 4 Mg Tablet 1 Tab Oral Every 6 Hr Prn as needed for Nausea 30 Tablet 12/25/16 Ramipril 10 Mg Capsule 10 Mg Oral Bedtime 12/25/16 Social History Social History Problem Response Recorded Date/Time Onset Date Status Chewing Tobacco Status No 12/25/2016 5:09am Not Applicable Not Applicable Hx Substance Use No 12/25/2016 5:09am Not Applicable Not Applicable Hx Alcohol Use No 12/25/2016 5:09am Not Applicable Not Applicable Query Response Start Date Stop Date Smoking Status Never smoker Hospital Discharge Instructions No hospital discharge instructions. Plan of Care Discharge Date 12/25/16 10:00am Disposition 01 DISCHARGED HOME, SELF-CARE Condition at Discharge Improved Instructions/Education Provided Abdominal Pain (ED) Prescriptions See Medication Section Referrals TIERNEY CONKLIN Address: [address] [address] Additional Instructions/Education Flagyl 500 mg, one tablet 3 times daily Levaquin 750 mg, 1 tab daily. Zofran 4 mg every 6 hours as needed for nausea. Low-fat diet--That means no fried fish and hush puppies :) Follow-up with your primary care provider, set up HIDA scan. Functional Status No functional status results. Allergies, Adverse Reactions, Alerts Allergen Type Severity Reaction Status Last Updated Penicillin Allergy Intermediate HIVES Active 12/25/16 Codeine Allergy Mild NAUSEA Active 12/25/16 Immunizations Query Response on File Recorded Date/Time Hx Influenza Vaccination Y fall06/10/09 3:13pm Hx Pneumococcal Vaccination Y 200506/10/09 3:13pm Hx Influenza Vaccination Y fall06/10/09 3:13pm Vital Signs Acute Vital Signs Vital Response Date/Time Temperature (Fahrenheit) 98.0 deg F (96.8 - 99.1) 12/25/2016 10:00am Temperature (Calculated Celsius) 36.81341 degrees C (36.0 - 37.3) 12/25/2016 10:00am Pulse Rate (adult) 78 bpm (60 - 100) 12/25/2016 10:00am Respiratory Rate 17 breaths/min (10 - 20) 12/25/2016 10:00am O2 Sat by Pulse Oximetry 98 % (90 - 100) 12/25/2016 10:00am Blood Pressure 133/67 mm Hg 12/25/2016 10:00am Height (Feet) 5 feet 12/25/2016 4:07am Height (Inches) 8.50 inches 12/25/2016 4:07am Weight (Kilograms) 94.400 kg 12/25/2016 4:07am Body Mass Index (BMI) 31.0 12/25/2016 4:07am Results Laboratory Results Test Name Result Units Flags Reference Collection Date/Time Result Date/ Time Comments White Blood Count 17.0 T/MM3 H 4.5-11.0 12/25/2016 5:04am 12/25/2016 5: 24am Red Blood Count 4.94 M/MM3 4.50-5.90 12/25/2016 5:04am 12/25/2016 5: 24am Hemoglobin 15.0 GM/DL 13.5-17.5 12/25/2016 5:04am 12/25/2016 5:24am Hematocrit 43.6 % 41-53 12/25/2016 5:04am 12/25/2016 5:24am Mean Corpuscular Volume 88.3 UM3 80-100 12/25/2016 5:04am 12/25/2016 5: 24am Mean Corpuscular Hemoglobin 30.4 UUG 26-34 12/25/2016 5:04am 2016 5:24am Mean Corpuscular Hemoglobin Concent 34.4 GM/DL 31-37 12/25/2016 5:04am 12/25/2016 5:24am RDW Standard Deviation 39.7 FL 36.9-50.2 12/25/2016 5:04am 12/25/2016 5 :24am Platelet Count 166 T/MM3 130-400 12/25/2016 5:04am 12/25/2016 5:24am Mean Platelet Volume 11.1 UM3 9.4-12.4 12/25/2016 5:04am 12/25/2016 5: 24am Neutrophils % (Manual) 92.0 % H 33-66 12/25/2016 5:04am 12/25/2016 5: 27am Band Neutrophils % 1.0 % 0-6 12/25/2016 5:04am 12/25/2016 5:27am Lymphocytes % (Manual) 7.0 % L 23-45 12/25/2016 5:04am 12/25/2016 5: 27am Band Neutrophils # 0.2 T/MM3 12/25/2016 5:04am 12/25/2016 5:27am Absolute Neutrophils (Manual) 15.6 T/MM3 H 1.8-7.7 12/25/2016 5:04am 5:27am Lymphocytes # (Manual) 1.2 T/MM3 1-4.8 12/25/2016 5:04am 12/25/2016 5: 27am Red Cell Morphology Comment NORMAL 12/25/2016 5:04am 12/25/2016 5: 27am Icterus Index < 2 0-7 12/25/2016 5:0412/25/2016 5:19am Chemistry Specimen Hemolysis < 15 0-25 12/25/2016 5:12/25/2016 5 :19am 0-25: Specimen Exhibited No Hemolysis. Turbidity < 20 0-20 12/25/2016 5:0412/25/2016 5:19am Sodium Level 139 MEQ/L 134-144 12/25/2016 5:0412/25/2016 5:19am Potassium Level 4.0 MEQ/L 3.6-5 12/25/2016 5:0412/25/2016 5:19am Chloride Level 99 MEQ/L 98-107 12/25/2016 5:0412/25/2016 5:19am Carbon Dioxide Level 25 MEQ/L 22-30 12/25/2016 5:04am 12/25/2016 5: 19am Anion Gap 15 MEQ/L 5-15 12/25/2016 5:12/25/2016 5:19am Blood Urea Nitrogen 21.0 MG/DL H 9-20 12/25/2016 5:0412/25/2016 5: 19am Creatinine 0.9 MG/DL 0.8-1.5 12/25/2016 5:0412/25/2016 5:19am BUN/Creatinine Ratio 23 RATIO 6-26 12/25/2016 5:0412/25/2016 5:19am Glomerular Filtration Rate Calc 87 12/25/2016 5:0412/25/2016 5: 19am Glucose Level 188 MG/DL H 75-110 12/25/2016 5:0412/25/2016 5:19am Calculated Osmolality 276 MOSM/KG 261-280 12/25/2016 5:12/25/2016 5:19am Calcium Level 9.1 MG/DL 8.4-10.2 12/25/2016 5:0412/25/2016 5:19am Total Bilirubin 1.20 MG/DL 0.20-1.30 12/25/2016 5:0412/25/2016 5: 19am Alkaline Phosphatase 59 U/L 38-126 12/25/2016 5:0412/25/2016 5:19am Total Protein 7.0 G/DL 6.3-8.2 12/25/2016 5:12/25/2016 5:19am Albumin 4.2 G/DL 3.5-5.0 12/25/2016 5:0412/25/2016 5:19am Globulin 2.8 G/DL 2.4-3.6 12/25/2016 5:0412/25/2016 5:19am Albumin/Globulin Ratio 1.5 RATIO 1.1-2.2 12/25/2016 5:0412/25/2016 5 :19am Aspartate Amino Transf (AST/SGOT) 24 U/L 17-59 12/25/2016 5:042016 5:19am Alanine Aminotransferase (ALT/SGPT) 34 U/L 21-72 12/25/2016 5:04 5:19am Lipase 33 U/L 23-300 12/25/2016 5:0412/25/2016 5:19am Procedures No known history of procedures. Encounters Encounter Location Arrival/Admit Date Discharge/Depart Date Attending Provider Departed Emergency Room [facility] 12/25/16 4:03am 12/25/16 10: 00am JUAN DONNELLY MD Recent Diagnosis
[2017-01-17] MEDS ORDERED: BUPIVACAINE 0.25%/EPI 1:200,000 30ml SDV ONE (10:54)
[2017-01-17] MEDS ORDERED: SALINE FLUSH 10ml SYRINGE ONE (10:54)
--- NOTE | 2017-01-17 11:09 | ANESPREOP ---
Anesthesia Record Date and Time DATE: 01/17/17 TIME: 11:07 Pre-Op Diagnosis Biliary Colic Proposed Surgical Procedure ROBOTIC ASSISTED LAPAROSCOPIC CHOLECYSTETOMY NPO since: Midnight Allergies: Coded Allergies: Penicillins (Verified Allergy, Intermediate, HIVES, 01/17/17) codeine (Verified Allergy, Mild, NAUSEA, 01/17/17) Ht/Wt/BMI Height: 5 ' 8.00 " Weight: 89.300 kg BMI: 29.9 kg/m2 Vital Signs Date Time Temp Pulse Resp B/P Pulse Ox O2 Delivery O2 Flow Rate FiO2 01/17/17 10:43 98.1 66 16 155/88 97 Room Air Medications Inpatient Medications Current Medications Medications (Trade) Dose Ordered Sig/Anisha Start Time Stop Time Status Last Admin Dose Admin Lactated Ringer's (Lactated Ringers) 1,000 ml @ 30 mls/hr Q24H 01/17/17 07:00 Albuterol Sulfate (Ventolin HFA 90 mcg/actuation) 18 Gm Hfa.aer.ad, 1-2 PUFF INH Q4HR PRN for PRN ORDERS, (Reported) Last Taken: on 01/17/17 0600 Amlodipine Besylate (Amlodipine Besylate) 5 Mg Tablet, 5 MG PO DAILY, (Reported) Last Taken: on 01/17/17 0600 Beclomethasone Dipropionate (Qvar 80) 8.7 Gm Aer.w.adap, 2 PUFF INH DAILY, (Reported) Last Taken: on 01/17/17 0600 Cholecalciferol (Vitamin D3) (Vitamin D3) 2,000 Unit Tablet, 2,000 UNIT PO BID, (Reported) Last Taken: on 01/16/17 1730 Cyclobenzaprine HCl (Cyclobenzaprine HCl) 5 Mg Tablet, 2.5 MG PO HS, (Reported) Last Taken: on 01/16/17 1800 Fexofenadine HCl (Kathleen Allergy) 180 Mg Tablet , 1 TAB PO DAILY, (Reported) Last Taken: on 01/16/17 0600 Fluoxetine HCl (Fluoxetine HCl) 40 Mg Capsule, 40 MG PO DAILY, (Reported) Last Taken: on 01/16/17 0600 Fluticasone Propionate (Fluticasone Prop 50 mcg/ actuation Nasal [place]) 120 [place]/16 G [place], 1-2 SPRAY EA NOSTRIL DAILY, ( Reported) Last Taken: on 01/16/17 Hydrocodone/Apap ([place] 5-325 Tablet) 5-325 Tablet, 1-2 TAB PO Q4-6H PRN for PAIN, (Reported) Last Taken: on 01/15/171999 Ibuprofen (Ibuprofen) 200 Mg Tablet, 600 MG PO Q6H PRN for PAIN, (Reported) Last Taken: on Unknown Date & Time Metformin HCl (Metformin HCl) 500 Mg Tablet, 500 MG PO BIDWM, (Reported) Last Taken: on 01/11/17 Metoprolol Tartrate (Metoprolol Tartrate) 50 Mg Tablet, 50 MG PO BID, (Reported) Last Taken: on 01/17/17 0600 Multivitamins W-Minerals (Multivitamin) 1 Cap Capsule, 1 CAP PO DAILY, (Reported) Last Taken: on 01/16/17 06 Omeprazole (Omeprazole) 20 Mg Capsule.dr, 20 MG PO ACB, (Reported) Last Taken: on 01/16/17 06 Ondansetron HCl (Ondansetron HCl) 4 Mg Tablet, 1 TAB PO Q6HPRN PRN for NAUSEA Last Taken: on Unknown Date & Time Ramipril (Ramipril) 10 Mg Capsule, 10 MG PO HS, (Reported) Last Taken: on 01/16/17 193 Currently on Beta Hillary: Yes Medical/Surgical History Anesthesia PMH: Reports: *Diabetes (TYPE II), *Hypertension (NORMAL WITH MEDS) , Arthritis, Asthma (SEASONAL), Pneumonia (), Reflux, Rheumatic Fever ( CHILDHOOD), Denies: *Angina, *Dyspnea, *NM, Anesthesia Reactions (NO AIRWAY ISSUES), Blood Transfusion Reac, CHF, COPD, CVA/Stroke/TIA, Cancer, Cardiac Arrythmia, Clotting Problems, Deep Vein Thrombosis, Glaucoma, Headaches, Hepatitis, Hiatal Hernia, Malignant Hyperthermia, Pacemaker, Renal Disease, Seizures, Sleep Apnea, Thyroid Disease, Tuberculosis Smoking Status: Former smoker Has pt. smoked today?: No Use Chewing Tobacco?: No Second Hand Exposure: No Substance Use Type: does not use Alcohol Intake: none Past Surgical History Orthopedic Surgeries: No Abdominal Surgeries: Yes - APPY, UMBILICAL HERNIA REPAIR Genitourinary Surgeries: No Cardiac Surgeries: No Endocrine Surgeries: No Reproductive Surgeries: No Neurological Surgeries: No Ear Surgeries: No Nose Surgeries: No Throat Surgeries: Yes - TONSILLECTOMY Other Surgeries: Yes - COLONOSCOPY, WISDOM TEETH Anesthesia Adverse Reactions: FOUND none Family Hx of Anesthesia Advers: none Hx of Motion Sickness: No Pertinent Findings EKG Rhythm: Sinus Rhythm Physical Exam Respiratory: Lungs clear Cardiovascular: FOUND Regular rate, rhythm Airway Assessment Mallampati Score: II TMD: 3 Fingerbreadths Neck Extension: Fair Overall Assessment: No Airway Concerns ASA: 3 Plan Anesthesia Plan: GETA Discussion Discussed risks/options/alternatives of anesthesia and questions answered. Patient consents. Nursing pain assessment noted. Present: Family Member Attestation Statement Prior to the delivery of any anesthetic medication, I examined the patient, developed the plan, obtained the patient's consent and discussed the risk and benefits of the procedure with the patient/guardian. JOSE MONCADA CLAIMS ADJUSTER January 17, 2017 11:09
[2017-01-17] MEDS ORDERED: FENTANYL 250mcg/5ml INJECTION ONE (11:26)
[2017-01-17 11:35] LABS: ANION GAP 13 MEQ/L (5-15); BUN/CREATININE RATIO 30 RATIO (6-26); CALCIUM 9.4 MG/DL (8.4-10.2); CHLORIDE 104 MEQ/L (98-107); CO2 - CARBON DIOXIDE 27 MEQ/L (22-30); CREATININE 0.7 MG/DL (0.8-1.5); GLOMERULAR FILTRATION RATE 116; GLUCOSE 135 MG/DL (75-110); POTASSIUM 4.4 MEQ/L (3.6-5); SODIUM 144 MEQ/L (134-144)
[2017-01-17] MEDS ORDERED: EPHEDRINE SULFATE 50mg/ml INJECTION ONE (12:04)
[2017-01-17] MEDS ORDERED: PHENYLEPHRINE 10mg/ml INJECTION ONE (12:07)
[2017-01-17] MEDS ORDERED: ONDANSETRON 4mg/2ml INJECTION ONE (12:16)
[2017-01-17] MEDS ORDERED: DEXAMETHASONE 4mg/ml - 1ml INJECTION ONE (12:16)
[2017-01-17] MEDS ORDERED: KETOROLAC 30mg/ml INJECTION ONE (12:16)
[2017-01-17] MEDS ORDERED: SUGAMMADEX 200 MG/2 ML INJECTION IV ONE (14:11)
[2017-01-17] MEDS: LR 1,000 ML IV SCH (14:12)
[2017-01-17] MEDS ORDERED: ALBUTEROL INH.SOLN. 2.5mg/3ml (0.083%) Neb. IH PRN (14:15)
[2017-01-17] MEDS ORDERED: HYDROCODONE/APAP 5 mg/325 mg TABLET PO PRN (14:15)
[2017-01-17] MEDS ORDERED: IBUPROFEN 200 MG TABLET PO PRN (14:15)
[2017-01-17] MEDS ORDERED: METRONIDAZOLE IVPB 500 MG in NORMAL SALINE 100 ML IV ONE (14:15)
[2017-01-17] MEDS ORDERED: ONDANSETRON 4mg/2ml INJECTION IV PRN ×2 (14:15→14:30)
[2017-01-17] MEDS ORDERED: MORPHINE SULFATE 4 MG SYRINGE IV PRN (14:15)
[2017-01-17] MEDS: HYDROMORPHONE 2mg/ml INJECTION IV PRN ×2 (14:25→14:54)
--- NOTE | 2017-01-17 14:34 | GSPOSTPN ---
Procedure Procedure Date: January 17, 2017 Surgeon: Rachel Assisting Surgeon: Orestes Echevarria Anesthesia: Local, GETA ASA: 3 Procedure Robotic assisted laparoscopic cholecystectomy with [employer] GS Diagnosis Postop Diagnosis Acute and Chronic cholecystitis with cholelithiasis without obstruction. Complications Complications Estimated Blood Loss See Anesthesia Record. Vital Signs See Anesthesia and PACU record. SISSY ECHEVARRIA INTERNET CAFE MANAGER January 17, 2017 14:34
--- NOTE | 2017-01-17 14:41 | NUR ---
BLOOD SUGAR PTS BLOOD SUGAR 203MG/DL UPON ARRIVAL TO PACU. KAREN WHITE NOTIFIED. VERBAL ORDER FOR REGULAR INSULIN 3UNITS SQ RECEIVED.
[2017-01-17] MEDS ORDERED: INSULIN REGULAR 100 UNIT/ML SQ ONE (15:00)
--- NOTE | 2017-01-17 15:20 | NUR ---
PVCs ON ARRIVAL TO DRAW BENCH OPERATOR NOTICED PT WAS HAVING PVCs EVERY 4TH BEAT PER TELE MONITOR. NO PRE-OP TELEMETRY CHARTED IN [facility] PER REVIEW BY RN. RN ASKED ANESTHESIA IF PT WAS HAVING PVCs PRIOR TO AND/OR DURING SURGERY, ANESTHESIOLOGIST DID NOT SEEM VERY CONCERNED. WHILE ATTACHING TELE STRIP THAT WAS OBTAINED WHILE PT WAS IN PACU, NURSE FOUND NORMAL SINUS RHYTHM PREOP TELE STRIP IN CHART. CALL PLACED TO KAREN WHITE. VERBAL ORDER TO HAVE PT PLACED ON TELEMETRY WHILE ON FLOOR RECEIVED.
--- NOTE | 2017-01-17 15:35 | NUR ---
Admit Pt transferred self from cart to bed at this time, Post op VS stable on RA. Pt denies nausea, Pt rates pain a 3/10. PO intake encouraged to Pt so this RN can administer PRN PO medication. Family present in room at time of transfer. Call light w/in reach, side rails up X2, bed alarm on.
[2017-01-17] MEDS: HYDROCODONE/APAP 5 mg/325 mg TABLET PO PRN ×2 (16:34→21:42)
--- NOTE | 2017-01-17 16:34 | NUR ---
Pain Pt rated pain a 3/10, Pt requested to take 1 tab of PRN [place] at this time. 1 tab given at this time. Will continue to monitor.
[2017-01-17] MEDS: METFORMIN 500 MG TABLET PO SCH (17:31)
--- NOTE | 2017-01-17 17:38 | OPNOTEF ---
DATE OF SERVICE 01/17/2017 SURGEON Antoine Ramos MD NURSE TECH Orestes Echevarria APRN PREOPERATIVE DIAGNOSIS Nonvisualization of gallbladder upon hepatobiliary scan/acute cholecystitis. POSTOPERATIVE DIAGNOSIS Nonvisualization of gallbladder upon hepatobiliary scan/acute cholecystitis/chronic cholecystitis. PROCEDURE Robotic-assisted laparoscopic cholecystectomy with use Firefly biliary imaging. ANESTHESIA General endotracheal. EBL/FLUIDS Please see chart. . BRIEF HISTORY/INDICATIONS Mr. Escalante is a 56-year-old gentleman who has had a several-week history of intermittent severe pain within his right upper quadrant. The patient has presented to two separate ER facilities as a result of his ongoing abdominal pain. He did apparently have a gallbladder sonogram that did not reveal any evidence for cholelithiasis. The patient did undergo hepatobiliary scan that did reveal nonvisualization of the gallbladder consistent with acute cholecystitis. Patient had been treated as well on an outpatient basis with antibiotics. The patient's pain had somewhat improved by the time he had seen me in the office. Nonetheless, as a result of above indications it was recommended to the patient that he undergo surgical intervention/cholecystectomy. For completeness please refer to notes included in the patient's chart. FINDINGS Upon laparoscopy the liver edge was smooth without nodularities. Small bowel, colon omentum, peritoneal surfaces which were visualized were within normal limits. The gallbladder itself was found to be markedly abnormal. The gallbladder was densely adherent to the surrounding viscus. There was a very thickened inflammatory rind surrounding the gallbladder. There appeared to be a large stone lodged within the infundibulum of the gallbladder. Dissection was difficult as a result of the marked inflammatory changes that were present. Nonetheless, a standard robotic-assisted laparoscopic cholecystectomy was able be completed without incident. NARRATIVE OF PROCEDUREDESCRIPTION OF PROCEDURE After informed consent was obtained the patient was brought to the operative suite and placed on the table in supine fashion. The abdomen was prepped and draped in sterile fashion. Formal timeout was then completed. 0.25% Marcaine with epinephrine was injected just beneath the level of the umbilicus. A 2-cm curved incision was then made through the area of analgesia. Dissection was carried down to the deep subcuticular tissues to the underlying fascia. Fascia was then grasped with two Linda clamps and retracted anteriorly. A 1-cm incision was made between the two Linda clamps. Hemostat was then introduced into the fascial incision and gently spread. U-stitch was placed with 0-Vicryl. A 12-mm Jyay port was then placed through the fascial opening and into the peritoneal cavity. Pneumoperitoneum was established to a patient pressure of 15 mmHg utilizing carbon dioxide. Next, two additional 8-mm da Nancy ports were then placed within the left upper quadrant and right lower quadrant. Lastly, a 5-mm assist port was placed along the right lateral abdominal wall. Each port site was preinjected with 0.25% Marcaine with epinephrine and placed under direct visualization. The patient was placed in reverse Trendelenburg and rotated to his left. The robot was then docked overlying the patient's right shoulder at a 45-degree angle. Upon sitting at the console, the gallbladder initially was not even able to be visualized. There was omentum adherent to the lower edge of the liver as well as covering the gallbladder. Omentum was also adherent to the anterior abdominal wall within the right upper quadrant. Omentum was able to be dissected away from the anterior abdominal wall. Omentum was then able to be dissected away from the liver edge. This was done bluntly with a suction tip catheter as well as at times with use of electrocautery. At no point in time was electrocautery performed adjacent to a hollow viscus such as the transverse colon, duodenum or stomach. The omentum was then continued to be slowly dissected away from the gallbladder. There was a moderate amount of fluid within the tissues consistent with acute cholecystitis. The gallbladder was found to be quite thickened in nature. The fundal portion of the gallbladder which was visualized was grasped by my salon assistant through the port along the right lateral abdominal wall and retracted in a cephalad and slightly lateral fashion to provide exposure. The gallbladder did fluoresce with Firefly imaging. Dissection was begun initially along the lateral aspect of the infundibulum of the gallbladder. There was a considerable amount of omentum that was adherent to the gallbladder. This was bluntly dissected away with a suction tip catheter as well as at times with the use of electrocautery. Eventually, dissection was continued until one began to see the cystic duct/infundibular junction. The lateral aspect of the cystic duct was able to be visualized and did fluoresce with Firefly biliary imaging. The posterior aspect of the infundibulum of the gallbladder was then cauterized along the lateral aspect and the infundibulum was continued to be reflected medially. One could ascertain that there was a large stone lodged within the infundibulum of the gallbladder which did make mobilization of the infundibulum of the gallbladder slightly more difficult. Next, the infundibulum of the gallbladder was grasped and retracted in a lateral and slightly caudad fashion to provide exposure to the triangle of Calot. Dissection was begun upon the anterior aspect of the infundibulum of the gallbladder. Dissection was begun upon the mid portion of the infundibulum of the gallbladder. Additionally, dissection was begun upon the medial aspect of the gallbladder and the infundibulum of the gallbladder was continued to be rotated out laterally. Dissection was fairly difficult as a result of the marked inflammatory changes that were present. Eventually the cystic duct was able to be identified and dissected out upon the mid portion of the infundibulum of the gallbladder. To further facilitate the dissection I elected to go ahead and divide the cystic artery at this time. I was quite comfortable that this indeed was the artery and was upon the mid portion of the infundibulum of the gallbladder a significant distance away from the hepatoduodenal ligament. Two Hem-o-kimmie clips were placed upon the cystic artery upon the mid portion of the gallbladder. The cystic artery did not fluoresce upon Firefly biliary imaging. The cystic artery was divided between the two Hem-o-kimmie clips. One could see the artery pulsating once it had been divided. This allowed further visualization of the medial aspect of the infundibulum of the gallbladder and the medial aspect of the infundibulum of the gallbladder was continued to be dissected out along its posterior aspect. Dissection was continued until one began to now see the medial portion of the cystic duct just beyond the infundibulum of the gallbladder. At this point in time the infundibulum of the gallbladder had been dissected out circumferentially and the only remaining structure coming forth from the infundibulum of the gallbladder was that of the cystic duct. The cystic duct did fluoresce quite well. A single Hem-o-kimmie clip was placed upon the distal aspect of the infundibulum of the gallbladder. An additional Hem-o-kimmie clip was placed upon the cystic duct just beyond the infundibulum of the gallbladder. The cystic duct was then divided between the two Hem-o-kimmie clips. The gallbladder was begun to be dissected off the liver bed fossa. Tissue planes were difficult to ascertain as a result of the marked inflammatory changes. The gallbladder did tear as it was being retracted anteriorly. This would be considered to be inherent to the procedure itself. A portion of the posterior aspect of the mid portion of the gallbladder was left upon the liver bed. The mucosa and posterior aspect of the infundibulum of the gallbladder appeared almost necrotic in nature and did tear very easily as a result of the poor quality of the gallbladder. Fundal portion of the gallbladder was able to be dissected off in its entirety. A small portion of the fundal portion of the gallbladder was left intact so that the liver could be retracted anteriorly in a cephalad fashion. Irrigation was performed. The gallbladder mucosa that remained upon the liver bed was then cauterized throughout until it had been completely obliterated. The gallbladder fossa was then irrigated and all irrigant was suctioned until clear. The previously placed Hem-o-Kimmie clips were visualized and remained to be intact. The gallbladder fossa was hemostatic in nature. The robot was undocked. The gallbladder was placed in a laparoscopic retrieval bag and removed via the infraumbilical port site. Given the marked inflammatory changes that were present I elected to leave a drain. A 19-Fr drain was placed within the 8-mm port within the left upper quadrant and brought out through the 5-mm port within the right lateral abdominal wall. The drain itself was then placed in a subhepatic location. The drain was secured to the anterior abdominal wall with 2-0 Prolene. All ports were removed under direct visualization. The previously placed U-stitch was then secured, imbricating the fascia at the infraumbilical port site. All skin incisions were closed in a subcuticular fashion with 4-0 Monocryl. Dermabond was placed overlying the incisions. Patient is in the process of awakening from his anesthetic and will be sent back to the recovery room once deemed in stable condition. Additionally, it should be noted that Orestes Echevarria APRN, was present throughout the entire case and played a pivotal role in providing assistance and exposure during the course of the procedure. QUINCY
--- NOTE | 2017-01-17 18:12 | NUR ---
SUMMARY PT A&OX3. PT ON RA. PRESENT AT BEDSIDE. PT GIVEN PRN NORCO AND MOTRIN ORDERED FOR PAIN RATING OF 2-3/10. NO VOID POSTOP AT THIS TIME. PT DENIES NAUSEA. LAP SITES C/D/I WITH DERMABOND, SONIYA DRAIN IN PLACE. CALL LIGHT W/IN REACH, BED ALARM ON.
[2017-01-17] MEDS: METRONIDAZOLE 500 MG TABLET PO SCH (21:59)
[2017-01-17] MEDS ORDERED: RAMIPRIL 5 MG CAPSULE PO SCH (22:00)
[2017-01-17] MEDS ORDERED: CYCLOBENZAPRINE 5 MG TABLET PO SCH (22:00)
[2017-01-18 00:05] VITALS: BP 137/85; PULSE 82; RESP 14; TEMP 98.6; O2SAT 95
[2017-01-18] MEDS: LR 1,000 ML IV SCH (00:12)
[2017-01-18 04:00] VITALS: BP 150/80; PULSE 82; RESP 16; TEMP 96.7; O2SAT 97
--- NOTE | 2017-01-18 04:56 | ANESPO ---
Post-Op Note Date 01/18/17 Time: 15:30 Status Pt Participated in Evaluation: Pt participated in person Vital Signs Date Time Temp Pulse Resp B/P Pulse Ox O2 Delivery O2 Flow Rate FiO2 01/18/17 04:00 96.7 82 16 150/80 97 Room Air 01/17/17 15:10 4.00 Respiratory Function: Airway patent, Regular respirations Cardiovascular Function: Regular pulse Telemetry Pattern: SR Mental Status: Alert/oriented Pain Level Intensity: 3 Hydration: Taking po fluids Complications during Recovery None apparent Follow-Up Instructions Instructions Per Surgeon JOSE DUENAS CRNA January 18, 2017 04:56
[2017-01-18 05:02] LABS: BASOPHILS % (AUTO) 0.1 % (0-2); HCT - HEMATOCRIT 41.5 % (41-53); HGB - HEMOGLOBIN 13.9 GM/DL (13.5-17.5); IMMATURE GRANULOCYTE # (AUTO) 0.03 T/MM3 (0.00-0.03); IMMATURE GRANULOCYTE % (AUTO) 0.2 % (0.0-0.5); LYMPHOCYTES # (AUTO) 1.4 T/MM3 (1-4.8); LYMPHOCYTES % (AUTO) 10.4 % (23-45); MEAN CORPUSCULAR HGB CONC(MCHC 33.5 GM/DL (31-37); MEAN CORPUSCULAR VOLUME 89.6 UM3 (80-100); MEAN PLATELET VOLUME 10.8 UM3 (9.4-12.4); MONOCYTES # (AUTO) 1.2 T/MM3 (0-0.8); MONOCYTES % (AUTO) 8.7 % (0-9.0); NEUTROPHILS #(AUTO)-ABSOLUTE 10.8 T/MM3 (1.8-7.7); NEUTROPHILS % (AUTO) 80.6 % (33-66); RED BLOOD COUNT 4.63 M/MM3 (4.50-5.90); WBC - WHITE BLOOD COUNT 13.4 T/MM3 (4.5-11.0)
[2017-01-18 05:25] LABS: ALBUMIN 3.7 G/DL (3.5-5.0); ALBUMIN/GLOBULIN RATIO 1.5 RATIO (1.1-2.2); ALKALINE PHOSPHATASE 58 U/L (38-126); ALT (SGPT) 43 U/L (21-72); ANION GAP 14 MEQ/L (5-15); AST (SGOT) 27 U/L (17-59); BUN/CREATININE RATIO 23 RATIO (6-26); CALCIUM 9.3 MG/DL (8.4-10.2); CHLORIDE 101 MEQ/L (98-107); CO2 - CARBON DIOXIDE 24 MEQ/L (22-30); CREATININE 0.8 MG/DL (0.8-1.5); GLOMERULAR FILTRATION RATE 100; GLUCOSE 158 MG/DL (75-110); POTASSIUM 4.1 MEQ/L (3.6-5); SODIUM 139 MEQ/L (134-144); TOTAL PROTEIN 6.2 G/DL (6.3-8.2)
[2017-01-18] MEDS: HYDROCODONE/APAP 5 mg/325 mg TABLET PO PRN ×2 (06:06→08:17)
[2017-01-18] MEDS ORDERED: OMEPRAZOLE 20 MG CAPSULE PO SCH (06:30)
[2017-01-18] MEDS ORDERED: LEVOFLOXACIN 500 MG TABLET PO SCH (06:30)
--- NOTE | 2017-01-18 07:23 | NUR ---
Summary Patient rested well during the night and verbalized that he is feeling stronger. Pain has been a 2-3/10 during the night and been controlled with medication (see eMAR). No SOA or nausea reported. Patient has void adequate amount during the night and is steady on his feet. Incision sites are CDI and SONIYA has had minimal output.
[2017-01-18 07:43] VITALS: BP 101/68; PULSE 79; RESP 16; TEMP 97.9; O2SAT 94
[2017-01-18 07:44] VITALS: PULSE 79; RESP 16
[2017-01-18] MEDS: METFORMIN 500 MG TABLET PO SCH (08:15)
[2017-01-18] MEDS: METRONIDAZOLE 500 MG TABLET PO SCH (08:16)
[2017-01-18] MEDS ORDERED: METR500T PO (08:32)
[2017-01-18] MEDS ORDERED: POLY17PO18 PO (08:32)
[2017-01-18] MEDS ORDERED: LEVO500T63 PO (08:32)
--- NOTE | 2017-01-18 08:49 | NUR ---
CM CM IN TO VISIT PATIENT, HE IS A&O. IS AT THE BEDSIDE. PATIENT PLANS TO RETURN HOME, DENIES DISCHARGE NEEDS. CM CONTACT INFORMATION PROVIDED. Addendum: 01/18/17 at 0850 by JOSHUA RINCON RN Amended: Links added.
--- NOTE | 2017-01-18 08:50 | PNSURG ---
Subjective DATE: 01/18/17 TIME: 08:33 Interval History States feeling much better than pre-op. The RUQ pain has subsided and replaced with incisional discomfort and "muscle pain" with activity. He has been ambulating and voiding without difficulty. Eating regular 2200 consistent carb diet. Passing flatus.CMP is unremarkable, glucose 158. CBC reveals WBC to be 13.4, gallbladder was very inflamed/infected. Surgery was lengthy, and difficulty over 2 hours, see operative note for details He denies chest pain, arm pain, SOA. Denies palpitations. VSS throughout PACU stay as well as on the floor. PACU had reported Multifocal PVC's of 3 in a row, then NSR for several beats, the another 2-3 PVC's. Reported this was occurring during surgery, but not seen on pre-op 6 second telemetry strip. Placed on telemetry on the floor, and frequency of PVC's has decreased. Copy of tele record given to , who will deliver this to Dr. Matias. Objective Vital Signs Date Time Temp Pulse Resp B/P Pulse Ox O2 Delivery O2 Flow Rate FiO2 01/18/17 07:44 79 16 01/18/17 07:43 97.9 101/68 94 Room Air 01/17/17 15:10 4.00 Height (Feet): 5 Height (Inches): 8.00 Weight (Kilograms): 90.500 BMI 29.9 General Appearance: Alert, Orientated x 3 Respiratory: FOUND: clear bilaterally Cardiac: FOUND: regular rate, regular rhythm (on tele with now only rare occasional PVC's) Abdominal Brief: FOUND: appropriately tender (at trocar sites), soft Incision: FOUND: Clean, Dry, Intact, open to air (Dermabond glue in tact), other (early ecchymosis at umbilicus seen), NOT FOUND: erythema Drains Present: FOUND Aj Sagastume Drain Output: FOUND: serosanguinous, NOT FOUND: bilious Laboratory Item Value Date Time Alanine Aminotransferase (ALT/SGPT) 43 U/L 01/18/17 0436 Aspartate Amino Transf (AST/SGOT) 27 U/L 01/18/17 0436 Total Bilirubin 0.70 MG/DL 01/18/17 0436 Laboratory Tests 01/17/17 11:04 01/18/17 04:36 Laboratory Tests 01/18/17 04:36 Procedure Procedure Date: January 17, 2017 Surgeon: Rachel Arguello Robotic assisted laparoscopic cholecystectomy with FireFly Imaging Findings Acute, inflamed cholecystitis with cholelithiasis, without obstruction. GS Assessment & Plan Problems: (1) Cholelithiasis and acute cholecystitis without obstruction (2) DM (diabetes mellitus), type 2 Status: Chronic Qualifiers: Diabetes mellitus complication status: with unspecified complications Diabetes mellitus senior care insulin use: without senior care use Qualified Codes : E11.8 - Type 2 diabetes mellitus with unspecified complications (3) Asymptomatic PVCs Assessment -8 Admitted for elective Robotic assisted lap kisha with FireFly imaging. See operative report for details. 5- POD #1 States feeling much better than pre-op. The RUQ pain has subsided and replaced with incisional discomfort and "muscle pain" with activity. He has been ambulating and voiding without difficulty. Eating regular 2200 consistent carb diet. CMP is unremarkable, glucose 158. CBC reveals WBC to be 13.4, gallbladder was very inflamed/infected. Surgery was lengthy, and difficulty over 2 hours, see operative note for details He denies chest pain, arm pain, SOA. Denies palpitations. VSS throughout PACU stay as well as on the floor. PACU had reported Multifocal PVC's of 3 in a row, then NSR for several beats, the another 2-3 PVC's. Reported this was occurring during surgery, but not seen on pre-op 6 second telemetry strip. Placed on telemetry on the floor, and frequency of PVC's has decreased. Copy of tele record given to , who will deliver this to Dr. Matias. Home with Levaquin 500 PO for 7 days and Flagyl 500 PO BID for [address] Matias January 21 at 9:40 for cardiac eval. Appointment with Dr. Ramos January 21 at 1:45 for drain management. DVT Prophylaxis: SCD'S Code Status Full Code Hospital Course Summary Disclaimer The visit summary below is not to be considered part of the above Progress Note. Hospital Course Summary 01-17 Admitted for elective Robotic assisted lap kisha with FireFly imaging. See operative report for details. 5-9 POD #1 States feeling much better than pre-op. The RUQ pain has subsided and replaced with incisional discomfort and "muscle pain" with activity. He has been ambulating and voiding without difficulty. Eating regular 2200 consistent carb diet. CMP is unremarkable, glucose 158. CBC reveals WBC to be 13.4, gallbladder was very inflamed/infected. Surgery was lengthy, and difficulty over 2 hours, see operative note for details He denies chest pain, arm pain, SOA. Denies palpitations. VSS throughout PACU stay as well as on the floor. PACU had reported Multifocal PVC's of 3 in a row, then NSR for several beats, the another 2-3 PVC's. Reported this was occurring during surgery, but not seen on pre-op 6 second telemetry strip. Placed on telemetry on the floor, and frequency of PVC's has decreased. Copy of tele record given to , who will deliver this to Dr. Matias. Home with Levaquin 500 PO for 7 days and Flagyl 500 PO BID for [address] Matias January 21 at 9:40 for cardiac eval. Appointment with Dr. Ramos January 21 at 1:45 for drain management. SISSY TOLLIVER APRN January 18, 2017 08:41
--- NOTE | 2017-01-18 08:54 | GSDISC ---
General Date Date DATE: 01/18/17 TIME: 08:50 Attending Physician Antoine Ramos MD,Facs,Cws Admitting Physician Antoine Ramos MD,Facs,Cws Consulting Physician Discharge Diagnosis: (1) Cholelithiasis and acute cholecystitis without obstruction (2) Asymptomatic PVCs (3) DM (diabetes mellitus), type 2 Status: Chronic Procedures Robotic assisted laparoscopic cholecystectomy with FireFly Imaging Laboratory Laboratory Laboratory Tests Test 01/17/17 11:04 01/17/17 14:37 01/17/17 22:22 01/18/17 04:36 Turbidity < 20 < 20 Sodium Level 144MEQ/L 139MEQ/L Potassium Level 4.4MEQ/L 4.1MEQ/L Chloride Level 104MEQ/L 101MEQ/L Carbon Dioxide Level 27MEQ/L 24MEQ/L Anion Gap 13MEQ/L 14MEQ/L Blood Urea Nitrogen 21.0MG/DL 18.0MG/DL Creatinine 0.7MG/DL 0.8MG/DL Glomerular Filtration Rate Calc 116 100 BUN/Creatinine Ratio 30RATIO 23RATIO Glucose Level 135MG/DL 158MG/DL Calculated Osmolality 282MOSM/KG 273MOSM/KG Calcium Level 9.4MG/DL 9.3MG/DL Icterus Index < 2 < 2 Chemistry Specimen Hemolysis 17 < 15 Glucometer 203mg/dL 158mg/dL White Blood Count 13.4T/MM3 Red Blood Count 4.63M/MM3 Hemoglobin 13.9GM/DL Hematocrit 41.5% Mean Corpuscular Volume 89.6UM3 Mean Corpuscular Hemoglobin 30.0UUG Mean Corpuscular Hemoglobin Concent 33.5GM/DL RDW Standard Deviation 40.0FL Platelet Count 186T/MM3 Mean Platelet Volume 10.8UM3 Immature Granulocyte % (Auto) 0.2% Neutrophils (%) (Auto) 80.6% Lymphocytes (%) (Auto) 10.4% Monocytes (%) (Auto) 8.7% Eosinophils (%) (Auto) 0.0% Basophils (%) (Auto) 0.1% Absolute Immature Granulocyte (auto 0.03T/MM3 Absolute Neutrophils (auto) 10.8T/MM3 Absolute Lymphocytes (auto) 1.4T/MM3 Absolute Monocytes (auto) 1.2T/MM3 Absolute Eosinophils (auto) 0.0T/MM3 Absolute Basophils (auto) 0.0T/MM3 Total Bilirubin 0.70MG/DL Aspartate Amino Transf (AST/SGOT) 27U/L Alanine Aminotransferase (ALT/SGPT) 43U/L Alkaline Phosphatase 58U/L Total Protein 6.2G/DL Albumin 3.7G/DL Globulin 2.5G/DL Albumin/Globulin Ratio 1.5RATIO Pathology Pathology Pending at time of discharge Hospital Course 5-8 Admitted for elective Robotic assisted lap kisha with FireFly imaging. See operative report for details. 5-9 POD #1 States feeling much better than pre-op. The RUQ pain has subsided and replaced with incisional discomfort and "muscle pain" with activity. He has been ambulating and voiding without difficulty. Eating regular 2200 consistent carb diet. CMP is unremarkable, glucose 158. CBC reveals WBC to be 13.4, gallbladder was very inflamed/infected. Surgery was lengthy, and difficulty over 2 hours, see operative note for details He denies chest pain, arm pain, SOA. Denies palpitations. VSS throughout PACU stay as well as on the floor. PACU had reported Multifocal PVC's of 3 in a row, then NSR for several beats, the another 2-3 PVC's. Reported this was occurring during surgery, but not seen on pre-op 6 second telemetry strip. Placed on telemetry on the floor, and frequency of PVC's has decreased to "rare." Perhaps one every 2-5 minutes. Copy of tele record given to , who will deliver this to Dr. Matias. Home with Levaquin 500 PO for 7 days and Flagyl 500 PO BID for [address]. [address] Matias January 21 at 9:40 for cardiac eval. Appointment with Dr. Ramos January 21 at 1:45 for drain management. Home Meds Active Scripts Metronidazole (Flagyl) 500 Mg Tablet, 500 MG PO Q12HR for 7 Days, #14 TAB Prov:SISSY TOLLIVER APRN 01/18/17 Levofloxacin (Levaquin) 500 Mg Tablet, 500 MG PO ACB for 7 Days, #7 TAB Prov:SISSY TOLLIVER APRN 01/18/17 Polyethylene Glycol 3350 (Healthylax) 17 Gm Powd.pack, 17 G PO DAILY Y for CONSTIPATION for 5 Days Prov:SISSY TOLLIVER APRN 01/18/17 Ondansetron HCl (Ondansetron HCl) 4 Mg Tablet, 1 TAB PO Q6HPRN Y for NAUSEA, # 30 TAB 1 Refill Prov:JUAN DONNELLY MD 12/25/16 Reported Medications Fexofenadine HCl (Kathleen Allergy) 180 Mg Tablet, 1 TAB PO DAILY, #30 TAB 2 Refills 01/14/17 Cholecalciferol (Vitamin D3) (Vitamin D3) 2,000 Unit Tablet, 2000 UNIT PO BID 12/25/16 Ibuprofen (Ibuprofen) 200 Mg Tablet, 600 MG PO Q6H Y for PAIN 12/25/16 Hydrocodone/Apap ([place] 5-325 Tablet) 5-325 Tablet, 1-2 TAB PO Q4-6H Y for PAIN 12/25/16 Cyclobenzaprine HCl (Cyclobenzaprine HCl) 5 Mg Tablet, 2.5 MG PO HS 12/25/16 Beclomethasone Dipropionate (Qvar 80) 8.7 Gm Aer.w.adap, 2 PUFF INH DAILY 12/25/16 Fluoxetine HCl (Fluoxetine HCl) 40 Mg Capsule, 40 MG PO DAILY 12/25/16 Omeprazole (Omeprazole) 20 Mg Capsule.dr, 20 MG PO ACB 12/25/16 Fluticasone Propionate (Fluticasone Prop 50 mcg/actuation Nasal [place]) 120 [place] /16 G [place], 1-2 SPRAY EA NOSTRIL DAILY 12/25/16 Amlodipine Besylate (Amlodipine Besylate) 5 Mg Tablet, 5 MG PO DAILY 12/25/16 Ramipril (Ramipril) 10 Mg Capsule, 10 MG PO HS 12/25/16 Metoprolol Tartrate (Metoprolol Tartrate) 50 Mg Tablet, 50 MG PO BID 12/25/16 Albuterol Sulfate (Ventolin HFA 90 mcg/actuation) 18 Gm Hfa.aer.ad, 1-2 PUFF INH Q4HR Y for PRN ORDERS 12/25/16 Metformin HCl (Metformin HCl) 500 Mg Tablet, 500 MG PO BIDWM 12/25/16 Multivitamins W-Minerals (Multivitamin) 1 Cap Capsule, 1 CAP PO DAILY 06/10/09 Discharge Disposition Good condition. Follow up with PCP and Dr. Ramos scheduled. SISSY TOLLIVER MORTGAGE LOAN ORIGINATOR January 18, 2017 08:53
[2017-01-18] MEDS ORDERED: FLUOXETINE 20 MG CAPSULE PO SCH (09:00)
[2017-01-18] MEDS ORDERED: FEXOFENADINE 180 MG TABLET PO SCH (09:00)
[2017-01-18] MEDS ORDERED: BUDESONIDE INH.SOLN. 0.5mg/2ml NEB AEROSOL SCH (09:00)
[2017-01-18] MEDS ORDERED: POLYETHYL.GLYCOL 3350 PACKET 17gm PO SCH (09:00)
[2017-01-18] MEDS ORDERED: AMLODIPINE 5 MG TABLET PO SCH (09:00)
[2017-01-18] MEDS ORDERED: FLUTICASONE 50 MCG EA NOSTRIL SCH (09:00)
--- NOTE | 2017-01-18 10:05 | NUR ---
SUMMARY/DISCHARGE PT A&OX3. VSS. PAIN REPORTED 1.5/10 PRIOR TO AMBULATION, PT REQUESTS PAIN MED TO WALK, PRN NORCO ADMINISTERED. DENIES N/V, HAS ADEQUATE INTAKE. LAP/CLAUDY SITES X3, ASYMPTOMATIC, DERMABOND INTACT. SONIYA DRAIN IN PLACE, MODERATE SEROSANGUINEOUS OUTPUT DOCUMENTED. DISCHARGE TEACHING GIVEN TO PT, AND DAUGHTER. TEACHING INCLUDES SONIYA DRAIN MANAGEMENT, INFECTION S/S, FOLLOW-UP APPTS AND PRESCRIPTIONS SENT TO PREFERRED PHARMACY. ANSWERED ALL QUESTIONS. RETURN DEMONSTRATION ON SONIYA DRAIN MANAGEMENT PROVIDED BY . DISCONTINUED IV, CATHETER INTACT, SITE IS ASYMPTOMATIC. LAPAROSCOPIC SITES ARE ASYMPTOMATIC, DERMABOND IN PLACE. SONIYA DRAIN SITE WITH SCANT DRIED SEROSANGUINEOUS FLUID NOTED ON PT SKIN, DRAIN IS SECURE, RN ASSISTED PT WITH SECURING DRAIN/TUBING BY SAFETY PIN ON PT PANT. RN TRANSFERRED PT BY WHEELCHAIR TO FAMILY CAR, PT TRANSFERRED SELF TO CAR, TOLERATING WELL, DAUGHTER DRIVING.
== END 2017-01-18 10:05 | disposition home or self-care (01) ==
LOC: SCU 10:23 → SRG 10:26 → SCU 01-18 10:05
PROVIDERS: ATTEND Surgery
DX: K80.00 Calculus of gallbladder with acute cholecystitis without obstruction (principal); E11.9 Type 2 diabetes mellitus without complications; I10 Essential (primary) hypertension; J45.909 Unspecified asthma, uncomplicated; K21.9 Gastro-esophageal reflux disease without esophagitis; F41.9 Anxiety disorder, unspecified; Z79.84 Long term (current) use of oral hypoglycemic drugs; Z79.899 Other long term (current) drug therapy; Z79.51 Long term (current) use of inhaled steroids; Z88.0 Allergy status to penicillin; Z88.5 Allergy status to narcotic agent; Z87.891 Personal history of nicotine dependence
CPT/HCPCS: 36415; 47562; 80048; 80053; 82948; 85025; J0360; J1100; J1170; J1815; J1956; J2370; J2405; J3010; J7030; J7050; J7060; J7120; S2900